=== PATIENT | female | born 2000 | race Caucasian/White ===

== ENCOUNTER 2023-06-01 08:29 | Emergency (ER) | payer OTHER ==
[~2023-06-01] VITALS: Ht 157.5 cm; Wt 115.7 kg
[~2023-06-01 08:29] MED LIST: CARAFATE1 GM PO; DROSPIRENONE-E1 EAC1 PO; HYDROCODON-ACE1 EA10 PO; PROTONIX40 MG PO
[2023-06-01 09:08] LABS: BILIRUBIN, URINE NEGATIVE (negative); BLOOD/HGB, URINE NEGATIVE (Negative); KETONE, URINE NEGATIVE (Negative); LEUK ESTERASE, URINE NEGATIVE (negative); NITRITE, URINE NEGATIVE (negative); PH, URINE 5.5 (5-7)
[2023-06-01 09:21] LABS: BASOPHILS 0.6 % (0-2); EOSINOPHILS 0.9 % (0-6); HEMATOCRIT 41.7 % (35.0-50.0); HEMOGLOBIN 13.8 g/dL (12.0-18.0); LYMPHOCYTES 30.2 % (24-44); MCHC 33.1 g/dl (30-36); MCV 87.4 fl (81-99); MONOCYTES 5.1 % (0-12); NEUTROPHILS 63.2 % (39-80); RBC 4.77 M/ul (4.3-5.7); RDW 12.9 (10.5-15.0)
[2023-06-01 09:33] LABS: PLATELET COUNT 302 K/uL (140-440)
[2023-06-01 09:36] LABS: ALBUMIN 3.6 g/dL (3.4-5.0); ALBUMIN/GLOBULIN RATIO 0.95 (1.1-2.4); ANION GAP 16.3 (7-21); BILIRUBIN, TOTAL 0.4 ng/dL (0.2-1.0); BUN/CREATININE RATIO 16.12 (6.0-28.6); CALCIUM 8.9 mg/dL (8.5-10.1); CREATININE, SERUM 0.62 mg/dL (0.55-1.02); POTASSIUM 4.3 mmol/L (3.5-5.1); PROTEIN, TOTAL 7.4 g/dL (6.4-8.2)
[2023-06-01] MEDS ORDERED: ONDANSETRON ODT8 MG PO (11:07)
[2023-06-01] MEDS ORDERED: HYDROCODON-ACE1 EA10 PO (11:07)
[2023-06-01 11:22] VITALS: BP 94/63
== END 2023-06-01 11:24 | disposition home or self-care (01) ==
LOC: ED 08:29
PROVIDERS: Emergency Medicine
DX: D27.0 Benign neoplasm of right ovary (principal); N83.292 Other ovarian cyst, left side; Z79.3 Long term (current) use of hormonal contraceptives
CPT/HCPCS: 36415; 76830; 76856; 80053; 81003; 84703; 85025; 99284-25; A9270